=== PATIENT | male | born 1955 ===

== ENCOUNTER 2021-12-10 05:15 | Day surgery (SDC) | payer OTHER ==
[~2021-12-10] VITALS: Ht 175.3 cm; Wt 71.7 kg
[~2021-12-10 05:15] MED LIST: ACID REDUCER20 M1 PO; CRESTOR10 MG PO; IBERSANTAN PO; LOSARTAN-HCTZ1 EAC2 PO
== END 2021-12-10 13:40 | disposition home or self-care (01) ==
LOC: CIR.AMB 05:15
PROVIDERS: ATTEND Urology
DX: C61 Malignant neoplasm of prostate (principal); Z20.822 Contact with and (suspected) exposure to COVID-19; I10 Essential (primary) hypertension; E78.5 Hyperlipidemia, unspecified; Z85.46 Personal history of malignant neoplasm of prostate; K74.60 Unspecified cirrhosis of liver; K29.00 Acute gastritis without bleeding; F10.21 Alcohol dependence, in remission
CPT/HCPCS: 53440; C1771